=== PATIENT | female | born 1965 | race Caucasian/White ===

== ENCOUNTER 2019-03-28 09:53 | Emergency (ER) | payer OTHER ==
[~2019-03-28 09:53] MED LIST: METF500T PO
[2019-03-28] MEDS ORDERED: MECLIZINE 25 MG TAB ONE (11:34)
== END 2019-03-28 13:48 | disposition home or self-care (01) ==
LOC: MED 09:53
DX: H81.10 Benign paroxysmal vertigo, unspecified ear (principal); E11.9 Type 2 diabetes mellitus without complications; Z79.84 Long term (current) use of oral hypoglycemic drugs
CPT/HCPCS: 99283; J8597

== ENCOUNTER 2021-07-04 17:54 | Emergency (ER) | payer OTHER ==
[~2021-07-04] VITALS: Ht 154.9 cm; Wt 77.1 kg
[2021-07-04 17:59] VITALS: BP 134/87
--- NOTE | 2021-07-04 18:45 | NUR ---
LABS AND URINE COLLECTED, HANDED TO ALEXIS FROM LAB.
[2021-07-04 18:53] LABS: BASOPHILS # (AUTO) 0.1 K/uL (0.00-0.22); BASOPHILS % (AUTO) 1.3 % (0.0-2.0); EOSINOPHILS # (AUTO) 0.3 K/uL (0-0.4); EOSINOPHILS % (AUTO) 3.2 % (0.0-4.0); HEMATOCRIT 36.6 % (36-48); HEMOGLOBIN 12.4 g/dL (12.0-16.0); LYMPHOCYTES # (AUTO) 2.3 K/uL (2.5-16.5); LYMPHOCYTES % (AUTO) 28.8 % (20.5-51.1); MEAN CORPUSCULAR HEMOGLOBIN 31 pg (27-31); MEAN CORPUSCULAR HGB CONC 34 g/dL (33-37); MEAN CORPUSCULAR VOLUME 90.7 fL (80-94); MONOCYTES # (AUTO) 0.5 K/uL (0.8-1.0); MONOCYTES % (AUTO) 6.7 % (1.7-9.3); NEUTROPHILS # (AUTO) 4.8 K/uL (1.8-7.7); PLATELET COUNT (AUTO) 247 K/uL (140-450); RED BLOOD CELL COUNT(AUTO) 4.04 MIL/uL (4.20-5.40); RED CELL DISTRIBUTION WIDTH 13.4 % (11.6-13.7)
[2021-07-04 18:56] LABS: BILIRUBIN,URINE NEGATIVE (NEGATIVE); BLOOD, URINE NEGATIVE (NEGATIVE); COLOR,URINE YELLOW (YELLOW); LEUKOCYTE ESTERASE ,URINE TRACE (NEGATIVE); NITRITE, URINE NEGATIVE (NEGATIVE); UGLUCOSE NEGATIVE (NEGATIVE)
[2021-07-04 18:57] LABS: APPEARANCE,URINE HAZY (CLEAR)
[2021-07-04 19:10] LABS: RBC,URINE NONE SEEN /HPF (0-5); WBC,URINE 0-5 /HPF (0-5)
[2021-07-04 19:16] LABS: ALBUMIN 3.8 g/dL (3.4-5.0); CARBON DIOXIDE 26.8 mmol/L (21-32); CREATININE 0.8 mg/dL (0.6-1.3); POTASSIUM 3.8 mmol/L (3.5-5.1); TOTAL BILIRUBIN 0.3 mg/dL (0.0-1.0)
--- NOTE | 2021-07-04 19:20 | NUR ---
56 YO/F BIB SELF W C/O RLQ ABDOMINAL PAIN SHARP NON-RAD TENDER TO TOUCH, WORSENING AND CONSTANT X1 WEEK, +NAUSEA, +CHILLS, + CONSTIPATION. PT DENIES ANY FEVERS, V/D, CHEST PAIN OR SOB. PT SAW PCP LAST WEEK HAD PELVIC EXAM WAS NORMAL. PT ON KEFLEX FOR SINUS INFECTION, TOOK IBUPROFEN X3 HOURS AGO W SOME RELIEF OF SYMPTOMS. PT SITTING IN BED, LOCKED IN LOWEST POSITION. BREATHING EVEN AND UNLABORED. NAD NOTED, WILL COTNINUE TO MONITOR. PMH: DIABETES ALLERGIES: OYSTERS
--- NOTE | 2021-07-04 19:28 | NUR ---
REPORT RECEIVED FROM OUSMANE CORONADO. CONTINUITY OF PT CARE AT THIS TIME.
--- NOTE | 2021-07-04 19:28 | NUR ---
Pt report given to YOLANDA RANDALL. Transfer of care at this time.
--- NOTE | 2021-07-04 21:20 | NUR ---
WALKED PT TO BATHROOM. GAIT STEADY. CURRENT PAIN 11/30. WALKED PT BACK TO BED , SIDERAILS UP
[2021-07-04 21:56] VITALS: BP 148/79
--- NOTE | 2021-07-04 21:56 | NUR ---
56YR OLD FEMALE BIB SELF C/O ABD PAIN [id number] WORSE TODAY. NO V/D HAS NAUSEA. PAIN IS A 7/10. CT ABD WITH CONTRAST , LABS AND URINE OBTAINED. NKDA. HX DM .
--- NOTE | 2021-07-04 21:56 | NUR ---
The patient's care was reviewed and supervised by Joy Thao RN.
--- NOTE | 2021-07-04 21:56 | NUR ---
Patient discharged with v/s stable. Written and verbal after care instructions given and explained. Patient verbalized understanding. Ambulatory with steady gait. All questions addressed prior to discharge. Advised to follow up with PMD.
== END 2021-07-04 21:56 | disposition home or self-care (01) ==
LOC: MED 17:54
DX: K59.00 Constipation, unspecified (principal); R11.0 Nausea; E11.9 Type 2 diabetes mellitus without complications
CPT/HCPCS: 36415; 74177; 80053; 81001; 83690; 85025; 99285; Q9967

== ENCOUNTER 2021-11-07 12:52 | Emergency (ER) | payer OTHER ==
[~2021-11-07] VITALS: Ht 154.9 cm; Wt 75.7 kg
[~2021-11-07 12:52] MED LIST changes: +METF-346 PO; -METF500T PO
[2021-11-07 13:03] VITALS: BP 129/87
--- NOTE | 2021-11-07 13:07 | NUR ---
56 y/o female, c/o right hand pain and swelling after heavy lifiting a couch 3 days ago. pt was told by pcp to come to er. pt states she tried hand splint and massage, no relief to area. skin is pink/warm/dry. a&o x4 with even and steady gait. lungs clear bl, heart rate even and regular. pt denies any fever, cp, sob, or cough at this time. pt states pain is 7/10 at this time. vss. lebron made aware of pt. pmh: dm2 allergy: oysters med: vitamin d, metformin
--- NOTE | 2021-11-07 13:25 | NUR ---
pt taken to xray via wheelchair
--- NOTE | 2021-11-07 13:50 | NUR ---
tony vasquez with pt in [place]
[2021-11-07] MEDS ORDERED: KETOROLAC 30 MG/ML VIAL IM ONE (13:55)
[2021-11-07] MEDS ORDERED: IBUP-2213 PO (14:04)
--- NOTE | 2021-11-07 14:20 | NUR ---
PER ER MID LEVEL, VELCRO THUMB SPICA PLACED ON PT R WRIST. PT TOLERATED SPLINT. + CMS AFTER APPLICATION
[2021-11-07] MEDS ORDERED: KETOROLAC 30 MG/ML VIAL ONE (15:18)
[2021-11-07 15:33] VITALS: BP 126/74
== END 2021-11-07 15:34 | disposition home or self-care (01) ==
LOC: MED 12:52
DX: S63.501A Unspecified sprain of right wrist, initial encounter (principal); E11.9 Type 2 diabetes mellitus without complications; Z79.899 Other long term (current) drug therapy; Z79.84 Long term (current) use of oral hypoglycemic drugs; X58.XXXA Exposure to other specified factors, initial encounter; Y93.89 Activity, other specified; Y92.89 Other specified places as the place of occurrence of the external cause; Y99.8 Other external cause status
CPT/HCPCS: 29125; 73110; 73130; 96372; 99284; J1885

== ENCOUNTER 2023-02-15 12:59 | Emergency (ER) | payer OTHER ==
[~2023-02-15] VITALS: Ht 154.9 cm; Wt 75.7 kg
[~2023-02-15 12:59] MED LIST changes: +IBUP-2213 PO
[2023-02-15 13:17] VITALS: BP 136/94; PULSE 67; RESP 16; TEMP 97.8; O2SAT 97
[2023-02-15 15:15] VITALS: BP 136/94; PULSE 67; RESP 16; TEMP 97.8; O2SAT 97
== END 2023-02-15 15:15 | disposition home or self-care (01) ==
LOC: MED 12:59
DX: S62.316A Displaced fracture of base of fifth metacarpal bone, right hand, initial encounter for closed fracture (principal); S80.01XA Contusion of right knee, initial encounter; S50.11XA Contusion of right forearm, initial encounter; R07.81 Pleurodynia; R03.0 Elevated blood-pressure reading, without diagnosis of hypertension; W01.198A Fall on same level from slipping, tripping and stumbling with subsequent striking against other object, initial encounter; Y93.89 Activity, other specified; Y92.89 Other specified places as the place of occurrence of the external cause; Y99.8 Other external cause status
CPT/HCPCS: 71101; 73090; 73110; 73130; 73562; 99284